=== PATIENT | female | born 1945 | race Caucasian/White ===

== ENCOUNTER 2024-11-07 08:14 | Outpatient (RCR) | payer BC, SELFPAY | END 2024-12-07 10:05 | disposition home or self-care (01) | PROVIDERS: PCP Family Medicine; Visit Provider Orthopaedic Surgery | DX: S42.201A Unspecified fracture of upper end of right humerus, initial encounter for closed fracture (principal); R53.1 Weakness; M25.611 Stiffness of right shoulder, not elsewhere classified; Z51.89 Encounter for other specified aftercare | CPT/HCPCS: 97110; 97161 ==